=== PATIENT | female | born 1965 | race Caucasian/White ===

== ENCOUNTER → 2017-10-10 13:20 | Outpatient (CLI) | payer MEDICAID, SELFPAY ==
--- NOTE | 2017-10-10 13:28 | XR_ITS ---
XR hip RT 2-3V w/pelvis HISTORY: ITS.REASON: ACUTE RT KNEE AND HIP PAIN ORDERING PHYSICIAN: Anita Cardona PATIENT AGE: 51 years COMPARISON: None FINDINGS: No fracture or dislocation is evident. There is minor asymmetrical joint space narrowing of the right hip. There are no soft tissue calcifications. IMPRESSION: Minor osteoarthritic change right hip
--- NOTE | 2017-10-10 13:28 | XR_ITS ---
XR knee RT 3V HISTORY: ITS.REASON: ACUTE RT KNEE AND HIP PAIN ORDERING PHYSICIAN: Anita Cardona PATIENT AGE: 51 years COMPARISON: None FINDINGS: No fracture or dislocation. No lytic or blastic change. Normal mineralization. No significant arthritic changes evident. No other significant findings IMPRESSION: Negative Knee
== END ==
PROVIDERS: PCP Internal Medicine Adolescent Medicine; Visit Provider Nurse Practitioner Family
DX: M25.551 Pain in right hip (principal); M25.561 Pain in right knee
CPT/HCPCS: 73502; 73562

== ENCOUNTER → 2018-09-15 11:39 | Outpatient (CLI) | payer MEDICAID, SELFPAY ==
--- NOTE | 2018-09-15 11:52 | XR_ITS ---
XR hip RT 2-3V w/pelvis HISTORY: Posttraumatic pain ITS.REASON: RT HIP PAIN,FALL ORDERING PHYSICIAN: Ger Brandt MD PATIENT AGE: 52 years COMPARISON: None FINDINGS: No fracture or dislocation is evident. No significant degenerative change. No lytic or blastic change. Unremarkable soft tissues IMPRESSION: Negative hip
--- NOTE | 2018-09-15 11:52 | XR_ITS ---
XR forearm RT 2V HISTORY: Pain following injury ITS.REASON: FALL,RT FOREARM PAIN ORDERING PHYSICIAN: Ger Brandt MD PATIENT AGE: 52 years COMPARISON: None FINDINGS: No obvious fracture, dislocation, lytic change or blastic change. Normal mineralization. Unremarkable soft tissues IMPRESSION: Negative forearm
--- NOTE | 2018-09-15 11:52 | XR_ITS ---
EXAM: XR lumbar spine min 4V HISTORY: Pain following injury ITS.REASON: FALL ORDERING PHYSICIAN: Ger Brandt MD PATIENT AGE: 52 years COMPARISON: None FINDINGS: Normal alignment. No fracture or dislocation. No lytic or blastic change. Mild degenerative disc disease is present at L5-S1 IMPRESSION: Degenerative disc disease L5-S1 otherwise negative
--- NOTE | 2018-09-15 11:52 | XR_ITS ---
XR humerus RT CLINICAL INDICATION: ITS.REASON: FALL,PAIN ORDERING PHYSICIAN: Ger Brandt MD PATIENT AGE: 52 years Comparison: None FINDINGS: No fracture or dislocation IMPRESSION: Negative
--- NOTE | 2018-09-15 11:52 | XR_ITS ---
XR elbow RT min 3V HISTORY: ITS.REASON: RT ELBOW PAIN,FALL ORDERING PHYSICIAN: Ger Brandt MD PATIENT AGE: 52 years COMPARISON: None FINDINGS: BONY STRUCTURES: No fracture or dislocation. No lytic or blastic change. Normal mineralization. SOFT TISSUES: Unremarkable. No radio opaque foreign bodies. No displaced fat pad. JOINT SPACE: Well-preserved. No significant arthritic changes evident. IMPRESSION: Negative elbow.
== END ==
PROVIDERS: PCP Internal Medicine Adolescent Medicine; Visit Provider Internal Medicine Adolescent Medicine
DX: M25.551 Pain in right hip (principal); W19.XXXA Unspecified fall, initial encounter; M79.601 Pain in right arm; M54.5 Low back pain
CPT/HCPCS: 72110; 73060; 73080; 73090; 73502

== ENCOUNTER → 2019-06-14 10:01 | Outpatient (CLI) | payer OTHER, SELFPAY ==
--- NOTE | 2019-06-14 10:13 | XR_ITS ---
PROCEDURE: XR ANKLE WT BEARING RT MIN 3V CLINICAL INDICATION: right ankle pain COMPARISON: No exams were available for comparison FINDINGS: There are no previous exams available for comparison. There has been prior ORIF of the distal tibia and fibula with a posterior bone plate at the distal tibia with 2 long screws within the medial malleolar region and 4 screws within the distal shaft of the fibula with an old distal fibular healed fracture. Lucencies are present in the fibula from prior external fixation. Ankle mortise is well preserved. The talar dome has an unremarkable appearance. There is some cortical irregularity involving the posterior distal aspect of the tibia with suggestion of some mild osteoarthritic changes at this area. IMPRESSION: Postsurgical changes with mild degenerative changes of the posterior distal tibia Dictated by: Rg Eldridge MD 06/14/2019 11:28 Electronically signed by Rg Eldridge MD in [place] 06/14/2019 11:28
== END ==
PROVIDERS: PCP Internal Medicine Adolescent Medicine; Referring Provider Internal Medicine Adolescent Medicine; Visit Provider Orthopaedic Surgery
DX: M25.571 Pain in right ankle and joints of right foot (principal)
CPT/HCPCS: 73610

== ENCOUNTER 2019-06-27 09:48 | Outpatient (RCR) | payer OTHER, SELFPAY ==
--- NOTE | 2019-06-27 11:15 | HMH.PTOPEV ---
PT Outpatient Evaluation Rehab PT Outpatient Evaluation Start: 06/27/19 10:48 Freq: Status: Active Protocol: Document 06/27/19 10:49 FIORDALIZA (Rec: 06/27/19 11:15 FIORDALIZA [id number]) Electronically Signed By Umesh Mcintyre PT 06/27/19 10:49 Outpatient Therapy Subjective History Subjective History This is the initial Physical Therapy evaluation for Anca Rocha. Pt is a 53 y/o female referred to PT for c/o R ankle pain. Pt's order was for eval and treat w/ lace up corset ankle brace fit. Pt wishes to only have HEP and brace fit due to anxiety issues. Pt reports original injury to R ankle was in 2012. Pt reprots she was on ladder at work and fell off fracturing ankle in three places . Pt reports she had ORIF done at w/ later removal of some of the hardware. Pt reports to PT now w/ complaints of anterior, medial and lateral ankle pain . Chief Complaint Pain,Stiff Symptom Type Ache,Sharp,Stabbing Symptoms Relieved By Rest/Positioning,Ice,Brace/ Support Symptoms Aggravated By Standing,Physical Activity, Walking Prior Functional Limitations Housework,Standing,Squatting, Recreation Activity,Walking, Stairs Current Functional Limitations Housework,Standing,Squatting, Recreation Activity,Walking, Stairs Symptom Description Constant but Variable Level of pain today (0-10) 7 Pain scale - at its best (0-10) 6 Pain scale - at its worst (0-10) 10 Ankle/Foot Eval Gait Observation General Gait Pattern Observation Antalgic Gait Palpation Tenderness right Ankle/Foot Palpation Findings Tenderness Ankle/Foot Palpation Overall Comment TTP anterior T/C jt line medial to lateral ATF TTP positive Deltoid ligament TTP positive ROM left Ankle/Foot ROM Reason Not Measured Within Functional Limits right Ankle/Foot Dorsiflexion w/Knee Extended 10 from neutral Active Range Motion (degrees) Ankle/Foot Plantar Flexion Active Range 60 of Motion (degrees) Ankle/Foot Eversion Active Range
== END 2019-06-27 09:50 | disposition home or self-care (01) ==
LOC: PT 09:48
PROVIDERS: Visit Provider Orthopaedic Surgery
DX: M25.571 Pain in right ankle and joints of right foot (principal)
CPT/HCPCS: 97110; 97163; 97760

== ENCOUNTER → 2019-06-28 07:38 | Outpatient (CLI) | payer OTHER, SELFPAY ==
[2019-06-28 08:14] LABS: Basophils # 0.1 K/mm3 (0-0.2); Eosinophils # 0.2 K/mm3 (0.0-0.4); Eosinophils % 2.9 % (0.1-12.0); Hematocrit 44.1 % (37.0-47.0); Lymphocytes # 1.6 K/mm3 (0.7-4.5); Lymphocytes % 27.7 % (10-50); Mean Corpuscular HGB Conc 34.1 g/dL (31.8-35.4); Mean Corpuscular Hemoglobin 28.6 pg (27.0-31.2); Mean Corpuscular Volume 83.9 fl (81-99); Mean Platelet Volume 9.2 fl (7.4-10.4); Monocytes # 0.3 K/mm3 (0.1-1.0); Neutrophils # 3.6 K/mm3 (1.8-7.8); Neutrophils % 62.3 % (37.0-80.0); Platelet Count 136 K/mm3 (142-424); Red Blood Count 5.26 M/mm3 (4.20-5.40); Red Cell Distribution Width 13.5 % (11.5-17.5); White Blood Count 5.7 K/mm3 (4.8-10.8)
[2019-06-28 12:01] LABS: Chloride 102 mmol/L (98-107); Potassium 3.7 mmoL/L (3.5-5.1); Sodium 137 mmol/L (136-145)
[2019-06-28 12:03] LABS: Blood Urea Nitrogen 7 mg/dl (7-17); Estimated Glomerular Filt Rate 88 ml/min (>60); GFR (African American) 107 ML/MIN (>60)
[2019-06-28 12:04] LABS: Alanine Aminotransferase 28 U/L (12-78); Albumin/Globulin Ratio 1.3 (1.1-1.8); Alkaline Phosphatase 113 U/L (38-126); Anion Gap 8.7 mEq/L (5-15); Aspartate Amino Transferase 54 U/L (14-36); Bilirubin,Total 0.7 mg/dl (0.2-1.3); Calcium 9.8 mg/dl (8.4-10.2); Carbon Dioxide 30 mmol/L (22.0-30.0); Chol/HDL Ratio 4.7 (1-3.5); Cholesterol 199 mg/dl (140-200); Globulin 3.1 g/dL (1.3-3.2); Glucose 124 mg/dl (74-100); HDL Cholesterol 42 mg/dl (40-60); Total Protein,Serum 7.1 g/dl (6.3-8.2); Triglycerides 141 mg/dl (30-150); VLDL Cholesterol 28 mg/dL (0-40)
[2019-06-28 12:15] LABS: Direct LDL Cholesterol 136.75 mg/dL (100-129)
[2019-06-28 12:35] LABS: Thyroid Stimulating Hormone 1.38 uIU/mL (0.465-4.68)
[2019-06-28 14:42] LABS: Hemoglobin A1C 8.2 % (4.0-6.0)
== END ==
PROVIDERS: Visit Provider Nurse Practitioner Psychiatric/Mental Health
DX: Z00.00 Encounter for general adult medical examination without abnormal findings (principal); Z79.899 Other long term (current) drug therapy
CPT/HCPCS: 36415; 80053; 80061; 83036; 84443; 85025

== ENCOUNTER → 2019-08-03 13:06 | Outpatient (CLI) | payer OTHER, SELFPAY ==
--- NOTE | 2019-08-03 13:12 | XR_ITS ---
PROCEDURE: XR HIP RT 2-3V W/PELVIS CLINICAL INDICATION: hip pain Posttraumatic pain COMPARISON: HIPCMRT XR hip RT 2-3V w/pelvis from 10/10/2017 FINDINGS: There are mild osteoarthritic changes of the right hip. No acute fracture or dislocation evident. No lytic or blastic change. AP view of the pelvis also shows mild osteoarthritis of the left hip. IMPRESSION: Mild osteoarthritis of the hips Dictated by: Rg Eldridge MD 08/03/2019 13:35 Electronically signed by Rg Eldridge MD in [place] 08/03/2019 13:35
== END ==
PROVIDERS: PCP Internal Medicine Adolescent Medicine; Visit Provider Orthopaedic Surgery
DX: M25.551 Pain in right hip (principal)
CPT/HCPCS: 73502

== ENCOUNTER → 2019-08-10 10:28 | Outpatient (CLI) | payer OTHER, SELFPAY ==
--- NOTE | 2019-08-10 10:28 | XR_ITS ---
PROCEDURE: XR HIP LT 2-3V W/PELVIS CLINICAL INDICATION: Hip Pain COMPARISON: XR HIP RT 2-3V W/PELVIS from 08/03/2019 FINDINGS: There is minor asymmetrical joint space narrowing similar to the right hip. There is minor spurring of the acetabular roof. The left femoral head and neck appear intact. There are no soft tissue calcifications. The left SI joint appears normal. IMPRESSION: Minor osteoarthritic change left hip Dictated by: Dr. Joaquín Davila MD 08/10/2019 11:[address] Joaquín Davila MD in [place] 08/10/2019 11:18
--- NOTE | 2019-08-10 10:28 | XR_ITS ---
PROCEDURE: XR KNEE LT 4V CLINICAL INDICATION: Knee pain COMPARISON: [id number] XR knee RT 3V from 10/10/2017 FINDINGS: There is mild joint space narrowing medially. There is minor spurring of the tibial spines. There is slight narrowing of the patellofemoral space. There is no effusion and no loose body is seen. IMPRESSION: Minor degenerate changes of the knee as noted Dictated by: Dr. Joaquín Davila MD 08/10/2019 11:[address] Joaquín Davila MD in [place] 08/10/2019 11:21
--- NOTE | 2019-08-10 13:46 | US_ITS ---
PROCEDURE: US BREAST RT COMPLETE CLINICAL INDICATION: ABN MAMM Palpable area near axillary tail right breast COMPARISON: MM DIG MAMM DX UNILAT RT CAD from 08/10/2019 FINDINGS: There is rather diffuse homogeneous echogenicity consistent with this lady's breast parenchyma which is primarily fatty. There is no abnormal cystic or solid lesion identified and there are no findings of architectural distortion. There is a normal sized node in the axilla near the palpable area. IMPRESSION: Essentially negative ultrasound right breast Dictated by: Dr. Joaquín Davila MD 08/11/2019 12:[address] Joaquín Davila MD in [place] 08/11/2019 12:30
--- NOTE | 2019-08-10 13:46 | MM_ITS ---
PROCEDURE: MM DIG MAMM DX UNILAT RT CAD Digital Breast Tomosynthesis Included CLINICAL INDICATION: ABN MAMM The right breast lump, left breast tenderness there is a history of breast cancer patient's great maternal aunt, maternal cousin and maternal grandmother. COMPARISON: DMSB DIG MAMM-SCREEN SUSAN from 01/23/2013 [facility]MSB DIG MAMM-SCREEN SUSAN from 01/30/2014 DMSB DIG MAMM-SCREEN SUSAN from 01/29/2016 TECHNIQUE: Standard CC and MLO images and 3D Tomosynthesis was obtained. R2 CAD reviewed. FINDINGS: The breasts are composed primarily of fat with minimal scattered fibroglandular densities in each breast. There are couple of benign-appearing microcalcifications in each breast. In particular there is no abnormal density or architectural distortion near the axillary tail of the right breast. There is no suspicious lesion in either breast and no suspicious microcalcifications. The couple of normal appearing nodes in both axilla. IMPRESSION: Fatty type breast parenchyma with no suspicious lesions seen and negative ultrasound right breast at the site of the patient's complaint BI-RAD Category: 2 Benign Finding(s) FOLLOW-UP: 1YR 1 Year Follow-up (A letter has been sent to the patient regarding results of the study.) Dictated by: Dr. Joaquín Davila MD 08/11/2019 14:[address] Joaquín Davila MD in [place] 08/11/2019 14:01
== END ==
PROVIDERS: PCP Internal Medicine Adolescent Medicine; Visit Provider Nurse Practitioner Family
DX: M25.552 Pain in left hip (principal); M25.562 Pain in left knee; R92.8 Other abnormal and inconclusive findings on diagnostic imaging of breast
CPT/HCPCS: 73502; 73564; 76641; 77061; 77065; G0279

== ENCOUNTER 2019-08-20 13:25 | Emergency (ER) | payer OTHER, SELFPAY ==
[2019-08-20 13:26] VITALS: BP 131/71; PULSE 70; RESP 18; TEMP 36.5; O2SAT 98; BMI 29.4
[2019-08-20 14:10] LABS: UTC Influenza A Antigen Negative (Negative); UTC Influenza B Antigen Negative (Negative)
--- NOTE | 2019-08-20 14:20 | HMH.EDUTC ---
[facility] [place] Disposition Clinical Impression: Otitis media Qualifiers: Otitis media type: unspecified Laterality: right Qualified Code(s): H66.91 - Otitis media, unspecified, right ear Disposition: Home, Self-Care Condition on Discharge: Good (otitis med) Instructions: Middle Ear Infection, Middle Ear Infections (Alternative Therapy), DI for Sinusitis, Sinusitis Additional Instructions: *Monitor Temp, Over the counter Motrin or Tylenol as directed/as needed Tylenol every 4 hours and Motrin every 6 hours (as long as your family doctor has told you that you can take it) for fever or pain. and straight to ER if unable to lower temp less than 101.0 after medication given *Warm salt water gargles may help to soothe the throat *Throat Lozenges *Warm fluids *Sleep elevated *Humidifier/Vaporizer *Flonase 2 sprays in each nostril daily but be aware that it may take 2-3 days before you notice improvement Take medication as prescribed Return if needed Your throat swab was sent for culture. Those results are typically sent to your primary care. Be sure to follow up in 2-3 days with your family doctor/primary care physician if no improvement so they can review those result and treat if necessary. If you don?t have a primary care doctor, I recommend you get one but in the mean time, you will have to return to a walk in clinic Follow up IMMEDIATELY for new or worsening symptoms or no Noticeable improvement over the next 48-72 hours. 911 for difficulty breathing or swallowing Prescriptions: Amoxicillin [Amoxicillin 500mg Cap] 500 mg PO TID #30 cap Transmission Status: Pending to [id number] Fluticasone Propionate [Flonase 50mcg nasal spray 16gm] 1 - 2 spr NS DAILY #1 bottle Transmission Status: Pending to [facility] Benzonatate [Tessalon Perle 100mg Cap*] 100 mg PO TID PRN #15 cap PRN Reason: Cough Transmission Status: Pending to [facility] Referrals: Ger Brandt MD [Primary Care Provider] - Medical Decision Making - John Inquiry Pt receiving controlled substance: No John was queried for this patient: No Vital Signs: 08/20/19 13:26 Temperature 97.7 F Temperature Source Oral Pulse Rate [Right] 70 Respiratory Rate 18 Blood Pressure [Right Arm] 131/71 Blood Pressure Mean [Right Arm] 91 02 Sat by Pulse Oximetry 98 - Lab Data Lab results reviewed: Yes: I reviewed the patient's lab results. Lab Results 08/20/19 14:08: Influenza Type A Ag Negative, Influenza Type B Ag Negative Orders (Tests/Meds): ORDERS Category Date Time Status Flu A&B Antigens, Rapid [Rapid Influenza A&B Antigens] Lab 08/20/19 14:03 Stop Req Stat [facility] HPI - General Stated complaint: ear pain,sore throat,sinus headache,cough Time Seen by Provider: 08/20/19 14:20 Mode of Arrival: Ambulatory Limitations: No Limitations Description of Symptoms (Recalled from Triage Doc. by RN): C/O ear pain, nausea, and GARZA x2 days. HEENT Symptoms (Recalled from RN notes): Yes Resp Symptoms (Recalled from RN notes): Yes Skin Symptoms (Recalled from RN notes): No MS Symptoms (Recalled from RN notes): No Functional Status (Recalled from RN notes): na - History of Present Illness Provider Complaint: Patient state that she has been having pain in her right ear for over a week and has got worse over the last couple of days States that she has also been having some sinus problems and having sinus headache and has been taking over the counter pain medication for it and it has helped States that she was up most of the night with cough also - Related Data Home Medications Medication Instructions Recorded Confirmed alogliptin 25 mg tablet 25 mg PO DAILY 06/14/19 08/10/19 cyclobenzaprine 5 mg tablet 5 mg PO QHS 06/14/19 08/10/19 diclofenac sodium 75 mg 75 mg PO BID 06/14/19 08/10/19 tablet,delayed release lisinopril 10 1 tab PO DAILY 06/14/19 08/10/19 mg-hydrochlorothiazide 12.5 mg tablet nystatin
[2019-08-20 14:27] VITALS: BP 130/85; PULSE 87; RESP 20; TEMP 36.8; O2SAT 98
== END 2019-08-20 14:27 | disposition home or self-care (01) ==
PROVIDERS: Emergency Provider Nurse Practitioner; PCP Internal Medicine Adolescent Medicine
DX: H66.91 Otitis media, unspecified, right ear (principal); F41.8 Other specified anxiety disorders; I10 Essential (primary) hypertension; F17.210 Nicotine dependence, cigarettes, uncomplicated; Z79.899 Other long term (current) drug therapy
CPT/HCPCS: 87804; 99201

== ENCOUNTER → 2020-01-24 15:38 | Outpatient (CLI) | payer OTHER, SELFPAY | PROVIDERS: PCP Internal Medicine Adolescent Medicine; Visit Provider Nurse Practitioner Family | DX: Z03.818 Encounter for observation for suspected exposure to other biological agents ruled out (principal); R06.02 Shortness of breath | CPT/HCPCS: U0003 ==

== ENCOUNTER 2020-01-28 13:51 | Emergency (ER) | payer OTHER, SELFPAY ==
[2020-01-28 14:04] VITALS: BP 161/92; PULSE 70; RESP 20; TEMP 36.7; O2SAT 97; BMI 31.4
--- NOTE | 2020-01-28 14:13 | HMH.EDUTC ---
[facility] [place] Clinical Impression: Bronchitis Otitis media Qualifiers: Otitis media type: suppurative Chronicity: acute Laterality: bilateral Recurrence: non-recurrent Spontaneous tympanic membrane rupture: without spontaneous rupture Qualified Code(s): H66.003 - Acute suppurative otitis media without spontaneous rupture of ear drum, bilateral Disposition: Home, Self-Care Condition on Discharge: Good Instructions: DI for Acute Bronchitis, How to Quit Tobacco Products Additional Instructions: Drink plenty of fluids. Take tylenol for pain or fever. Start the antibiotics that I prescribed. Finish the steroids that you are already on. Follow up with your regular doctor. GO TO THE ER FOR ANY WORSENING SYMPTOMS The cough medication (promethazine dm) will make you drowsy, so don't drive or operate heavy machinery after taking it. Prescriptions: Promethazine/Dextromethorphan [Promethazine-Dm Syrup] 5 ml PO Q6HP PRN #240 syrup PRN Reason: Cough Transmission Status: Received by [facility] #[id number] Fluconazole [Diflucan 150mg tab] 150 mg PO ONCE #1 tab Transmission Status: Received by [facility] #[id number] Neomycin/Polymyxin B Sulf/Hc [Bawnqual-Iuiutbiai-OR Otic Susp 10mL] 3 drops EAR-RIGHT TID 7 Days #1 bottle Transmission Status: Received by [facility] #[id number] Cefdinir [Omnicef 300mg Capsule] 300 mg PO BID #20 cap Transmission Status: Received by [facility] #[id number] Referrals: Ger Brandt MD [Primary Care Provider] - Time of Disposition: 14:56 Medical Decision Making - Medical Records Medical records reviewed: No: I reviewed the patient's medical records. - John Inquiry Pt receiving controlled substance: No Vital Signs: 01/28/20 14:04 01/28/20 15:05 Temperature 98.1 F 98.1 F Temperature Source Oral Pulse Rate 70 Pulse Rate [Right Brachial] 70 Respiratory Rate 20 20 Blood Pressure 161/92 H Blood Pressure [Right Arm] 161/92 H Blood Pressure Mean [Right Arm] 115 Blood Pressure Source [Right Arm] Automatic Cuff Blood Pressure Position [Right Arm] Sitting 02 Sat by Pulse Oximetry 97 Oxygen Delivery Method Room Air Orders (Tests/Meds): ED MEDICATIONS Discontinued Medications Generic Name Dose Route Start Last Admin Trade Name Rosalee PRN Reason Stop Dose Admin Ceftriaxone Sodium 1 gm 01/28/20 14:41 01/28/20 14:51 Ceftriaxone 1gm Vial IM 01/28/20 14:42 1 gm ONCE ONE Administration Protocol Lidocaine HCl 0 ml 01/28/20 14:41 01/28/20 14:51 Lidocaine 1% 5ml Pf Vial IM 01/28/20 14:42 2.1 ml ONCE ONE Administration ORDERS Category Date Time Status Covid-19 Nasal PCR ([facility]) Routine Lab 01/28/20 14:50 Received [facility] [place]PI - General Stated complaint: cough, soa Time Seen by Provider: 01/28/20 14:13 Mode of Arrival: Ambulatory Source of Information: Patient Limitations: No Limitations Description of Symptoms (Recalled from Triage Doc. by RN): PATIENT C/O COUGH, HEADACHE, EAR PAIN, GREEN NASAL DRAINAGE, AND LOW-GRADE FEVER X APPROX 2 WEEKS. REPORTS SHE SAW HER PCP ON TUESDAY WHO GAVE HER A Z-PACK AND STEROIDS, HOWEVER SHE STATES SHE DOES NOT FEEL BETTER TODAY HEENT Symptoms (Recalled from RN notes): No Resp Symptoms (Recalled from RN notes): No Skin Symptoms (Recalled from RN notes): No MS Symptoms (Recalled from RN notes): No Functional Status (Recalled from RN notes): WNL - History of Present Illness Provider Complaint: She states that for the past 2 weeks she has had cough, chest congestion, and sinus congestion. She has just finished a z-pack with no improvement in her symptoms. She refuses a covid test today. - Related Data Home Medications Medication Instructions Recorded Confirmed alogliptin 25 mg tablet 25 mg PO DAILY 06/14/19 12/10/19 cyclobenzaprine 5 mg tablet 5 mg PO QHS 06/14/19 12/10/19 diclofenac sodium 75 mg 75 mg PO BID 06/14/19 12/10/19 tablet,delayed release lisinop
--- NOTE | 2020-01-28 14:17 | XR_ITS ---
PROCEDURE: XR CHEST 2V CLINICAL HISTORY: cough Cough and shortness of breath COMPARISON: No exams were available for comparison FINDINGS: The cardiomediastinal silhouette and pulmonary vascularity are within normal limits. The lungs are clear without infiltrates, suspicious nodules, or pleural effusions. No acute bony abnormalities. IMPRESSION: No acute findings. Dictated by: Rg Eldridge MD 01/28/2020 15:00 Rg Eldridge MD in [place] 01/28/2020 15:00
[2020-01-28 15:05] VITALS: BP 161/92; PULSE 70; RESP 20; TEMP 36.7; O2SAT 97
== END 2020-01-28 15:08 | disposition home or self-care (01) ==
PROVIDERS: Emergency Provider Nurse Practitioner Family; PCP Internal Medicine Adolescent Medicine
DX: Z20.828 Contact with and (suspected) exposure to other viral communicable diseases (principal); H66.003 Acute suppurative otitis media without spontaneous rupture of ear drum, bilateral; J20.9 Acute bronchitis, unspecified; E11.9 Type 2 diabetes mellitus without complications; F41.8 Other specified anxiety disorders; F17.210 Nicotine dependence, cigarettes, uncomplicated; Z79.899 Other long term (current) drug therapy
CPT/HCPCS: 71046; 96372; 99202; U0003

== ENCOUNTER → 2020-03-15 09:35 | Outpatient (CLI) | payer OTHER, SELFPAY ==
--- NOTE | 2020-03-15 09:38 | XR_ITS ---
PROCEDURE: XR HIP LT 2-3V W/PELVIS CLINICAL INDICATION: left hip pain Posttraumatic pain COMPARISON: CR XR HIP LT 2-3V W/PELVIS from 08/10/2019 FINDINGS: There are mild osteoarthritic changes involving both hips. No acute fracture or dislocation. No lytic or blastic change. IMPRESSION: Mild osteoarthritis, no acute. Dictated by: Rg Eldridge MD 03/15/2020 11:21 Rg Eldridge MD in [place] 03/15/2020 11:21
--- NOTE | 2020-03-15 09:53 | XR_ITS ---
PROCEDURE: XR KNEE LT 4V CLINICAL INDICATION: Left knee pain COMPARISON: CR [id number] XR knee RT 3V from 10/10/2017 CR XR KNEE LT 4V from 08/10/2019 FINDINGS: No fracture or dislocation. No lytic or blastic change. There is normal mineralization. Mild tricompartmental osteoarthritic changes are present greatest at the medial compartment and overall not significantly changed from 08/10/2019 Other findings:None. IMPRESSION: Mild osteoarthritis Dictated by: Rg Eldridge MD 03/15/2020 11:20 Rg Eldridge MD in [place] 03/15/2020 11:20
== END ==
PROVIDERS: PCP Internal Medicine Adolescent Medicine; Visit Provider Orthopaedic Surgery
DX: M25.552 Pain in left hip (principal); M25.562 Pain in left knee
CPT/HCPCS: 73502; 73564

== ENCOUNTER → 2020-03-17 14:04 | Outpatient (CLI) | payer OTHER, SELFPAY ==
--- NOTE | 2020-03-17 14:09 | CT_ITS ---
PROCEDURE: CT ANKLE RT WO CON CLINICAL HISTORY: Rt ankle pain r ankle pain hx of surg. 2013 COMPARISON: CR XR ANKLE WT BEARING RT MIN 3V from 06/14/2019 TECHNIQUE: Axial images obtained with sagittal and coronal reformats. All CT scans at the facility use one or more dose reduction, viz: automated exposure control, ma/kV adjustment per patient size (including targeted exams where dose is matched to indication, i.e. head), or iterative reconstruction technique. FINDINGS: There is a posterior bone plate at the distal tibia with multiple cortical screws. There are 2 oblique screws through the medial malleolar region. There is an old distal fibular shaft fracture with for cortical screws at the fracture site. The ankle mortise is preserved. Talar dome has an unremarkable appearance as does the tibial plafond and the Achilles tendon appears unremarkable. The talus and calcaneus appear unremarkable. No abnormal fluid collections are evident. There are several lucencies through the distal fibula from previous cortical screw placement. A small linear density is present in the tissues just posterior to the shaft of the fibula distally and could represent a bone shard. IMPRESSION: No acute finding. Postsurgical changes are present as described above. Dictated by: Rg Eldridge MD 03/19/2020 14:28 Rg Eldridge MD in [place] 03/19/2020 14:28
== END ==
PROVIDERS: PCP Nurse Practitioner Family; Visit Provider Orthopaedic Surgery
DX: M25.571 Pain in right ankle and joints of right foot (principal)
CPT/HCPCS: 73700

== ENCOUNTER → 2020-03-26 15:12 | Outpatient (CLI) | payer OTHER, SELFPAY ==
--- NOTE | 2020-03-26 15:16 | XR_ITS ---
PROCEDURE: XR KNEE LT 4V CLINICAL INDICATION: fall on 03/22/20 COMPARISON: No exams were available for comparison FINDINGS: No fracture or dislocation. No lytic or blastic change. There is normal mineralization. There is moderate joint space narrowing medially minor spurring of the tibial spines.. No erosive changes evident. There is no effusion. Other findings:None. IMPRESSION: Minor degenerate change, no acute fracture seen Dictated by: Dr. Joaquín Davila MD 03/26/2020 15:50 Dr. Joaquín Davila MD in [place] 03/26/2020 15:50
--- NOTE | 2020-03-26 15:16 | XR_ITS ---
PROCEDURE: XR ELBOW LT MIN 3V CLINICAL INDICATION: fall on 03/22/20 COMPARISON: No exams were available for comparison FINDINGS: No fracture or dislocation. No lytic or blastic change. There is normal mineralization. The joint spaces are well-preserved. No significant degenerative/arthritic changes. No erosive changes evident. Other findings:None. IMPRESSION: No acute findings. Dictated by: Dr. Joaquín Davila MD 03/26/2020 15:48 Dr. Joaquín Davila MD in [place] 03/26/2020 15:48
--- NOTE | 2020-03-26 15:16 | XR_ITS ---
PROCEDURE: XR KNEE RT 4V CLINICAL INDICATION: fall on 03/22/20 COMPARISON: No exams were available for comparison FINDINGS: No fracture or dislocation. No lytic or blastic change. There is normal mineralization. There is minor joint space narrowing medially and minor spurring of the tibial spines.. No erosive changes evident. There is no effusion. Other findings:None. IMPRESSION: Minor degenerative changes, no fracture seen Dictated by: Dr. Joaquín Davila MD 03/26/2020 15:49 Dr. Joaquín Davila MD in [place] 03/26/2020 15:49
--- NOTE | 2020-03-26 15:16 | XR_ITS ---
PROCEDURE: XR ELBOW RT MIN 3V CLINICAL INDICATION: fall on 03/22/20 COMPARISON: No exams were available for comparison FINDINGS: No fracture or dislocation. No lytic or blastic change. There is normal mineralization. The joint spaces are well-preserved. There is minor spurring of the coronoid process of the olecranon fossa.. No erosive changes evident. Other findings:No abnormal fat pad sign IMPRESSION: No acute findings. Dictated by: Dr. Joaquín Davila MD 03/26/2020 15:45 Dr. Joaquín Davila MD in [place] 03/26/2020 15:45
== END ==
PROVIDERS: PCP Nurse Practitioner Family; Visit Provider Orthopaedic Surgery
DX: M25.562 Pain in left knee (principal); M25.561 Pain in right knee; M25.522 Pain in left elbow; W19.XXXA Unspecified fall, initial encounter
CPT/HCPCS: 73080; 73564

== ENCOUNTER → 2020-04-03 08:32 | Outpatient (CLI) | payer OTHER, SELFPAY ==
[2020-04-03 10:40] LABS: Coronavirus 19 IgG Antibody Negative (Negative); Coronavirus 19 IgM Antibody Negative (Negative)
== END ==
PROVIDERS: Visit Provider Internal Medicine Gastroenterology
DX: Z01.818 Encounter for other preprocedural examination (principal); Z03.818 Encounter for observation for suspected exposure to other biological agents ruled out; Z12.11 Encounter for screening for malignant neoplasm of colon
CPT/HCPCS: 36415; 86328

== ENCOUNTER 2020-04-04 07:22 | Day surgery (SDC) | payer OTHER, SELFPAY ==
[2020-03-24 13:32] VITALS: BMI 28.1
[2020-04-04] VITALS (7 sets, daily range): BP systolic 81–122; BP diastolic 49–75; PULSE 53–65; RESP 18; TEMP 36.1–36.2; O2SAT 96–99
--- NOTE | 2020-04-04 09:04 | HMH.ANESCL ---
[facility] Anesthesia Checklist - Structural Data Admitted From: Home Planned Operative Procedure/s: colonoscopy Consent for Planned Operative Procedure(s) Verified: Yes - Airway Assessment C-Spine Mobility Assessed: Yes TMJ Mobility Assessed: Yes Dentition: Poor Dentition - Neurological Assessment Level of Consciousness: Awake, Alert, Appropriate - Anesthesia Plan Anesthesia Risk discussed: Yes Anesthesia Plan: Verified ASA Class: II Anesthesia Type: MAC [facility] History I have reviewed the patient's past medical history: Yes Medical History: Reports:: Anxiety, Depression, Diabetes Mellitus Type 2, Hypertension Denies:: Cancer, Diabetes Mellitus Type 1, Internal Pacemaker, MRSA, Seizures *Have you ever received a pneumonia vaccine?: No *Have you received a flu vaccine this season?: Yes Other Medical History: Reports: Arthritis Anesthesia experience/problems:: none Laterality Cases: Left: Arthroscopy Knee, Right: Other Other Surgeries: Yes: Cholecystectomy, Hysterectomy-Total, Tubal Ligation. No: Pacemaker Amputation: No Fractures: No - *Social History Last grade of school completed: GED Smoking Status: Current every day smoker Tobacco Type: cigarettes # Packs/Day (cigarettes): 1 Alcohol Intake: current Alcohol Intake Frequency:: holidays/special occasions only Substance Use Type: marijuana *Occupational Status:: disabled Housing: house Household Members: spouse *Travel in the last 8 weeks: None - Psychiatric History Pschychiatric History:: Reports:: Anxiety, Depression Family Hx:: Anemia, Asthma, Cancer, Diabetes, Heart Attack, Hyperlipidemia, Hypertension, Kidney Disease, Stroke, Thyroid Disorder, Substance abuse, Alcoholism, Mental illness
--- NOTE | 2020-04-04 09:13 | HMH.PROC ---
[facility] Procedure Note Procedure Note:: Colonoscopy Procedure Report: Colonoscopy with cold biopsies Endoscopist: Dutch Gotti II, MD Referring physician: DOLLY Bowen Date of Procedure: April 04, 2020 Equipment: Olympus 180 variable stiffness pediatric colonoscope Sedation: MAC sedation Indication: Mrs. Rocha is a 54-year-old female who is here for screening colonoscopy. She does state that she had a colonoscopy 30 years ago. The patient does get some chronic lower abdominal discomfort, bloating and intermittent constipation. Her maternal grandfather had colon cancer. She reports occasional hemorrhoidal bleeding every couple of months. She reports no change in her bowel habits or weight loss. Procedure: Prior to the procedure, a history and physical exam was performed, and patient's medications and allergies were reviewed. The risks, benefits and alternatives of the sedation and procedure were discussed with the patient. All questions were answered and informed consent was obtained. The patient was brought to the procedure room. Patient identification and proposed procedure were verified by the physician and the nurse. The patient was placed in a left lateral decubitus position and the scope was passed under direct vision. Throughout the procedure, the patient's blood pressure, pulse, and oxygen saturations were monitored continuously. The colonoscopy was accomplished without difficulty. The patient tolerated the procedure well. Findings: On digital rectal examination there was normal rectal tone. There were no external hemorrhoids. The colonoscope was introduced through the anal canal to the rectum and advanced to the cecum. The ileocecal valve and appendiceal orifice were identified. The scope was advanced a short distance into the ileum which appeared grossly normal. The scope was then withdrawn into the colon. There was an ulceration in the cecum that appeared to be NSAID colopathy and cold biopsies were obtained. The remaining cecum, ascending, transverse, descending, sigmoid and rectum were grossly normal. There were no mucosal abnormalities identified. Additionally, there were large pools of brown liquid stool impairing visualization and could not be suctioned because of a large amount of residue. Upon retroflexion within the rectum there were grade 2 internal hemorrhoids.The preparation was fair to poor throughout with [place] Preparation Score of 5 out of 9. The cecal time was 12 minutes. Impression: 1. Cecal ulceration?rule out NSAID colopathy 2. Poor bowel preparation 3. Grade 2 internal hemorrhoids Plan: I will discuss the findings with the patient and family. Screening/surveillance is debatable in terms of repeating colonoscopy now or I would recommend repeating surveillance again in 5 years rather than 10 years. We will discuss treatment of her IBS constipation and abdominal discomfort. I will follow-up the biopsies.
[2020-04-04 10:18] LABS: POC Glucose,Bedside 107 (70-110)
== END 2020-04-04 10:00 | disposition home or self-care (01) ==
LOC: OUTP 07:23
PROVIDERS: PCP Internal Medicine Adolescent Medicine; Visit Provider Internal Medicine Gastroenterology
PROC: 0DJD8ZZ Inspection of Lower Intestinal Tract, Via Natural or Artificial Opening Endoscopic (ICD-10-PCS; CPT 45378; principal; 2020-04-04 08:30)
DX: Z12.11 Encounter for screening for malignant neoplasm of colon (principal); K63.3 Ulcer of intestine; K64.1 Second degree hemorrhoids; E11.9 Type 2 diabetes mellitus without complications; I10 Essential (primary) hypertension; F41.9 Anxiety disorder, unspecified; F32.9 Major depressive disorder, single episode, unspecified; M19.90 Unspecified osteoarthritis, unspecified site; Z72.0 Tobacco use; Z80.9 Family history of malignant neoplasm, unspecified; Z82.3 Family history of stroke; Z82.49 Family history of ischemic heart disease and other diseases of the circulatory system
CPT/HCPCS: 45380; 82962

== ENCOUNTER → 2020-05-17 12:00 | Outpatient (CLI) | payer OTHER, SELFPAY ==
[2020-05-17 13:22] LABS: Coronavirus 19 IgG Antibody Negative (Negative); Coronavirus 19 IgM Antibody Negative (Negative)
== END ==
PROVIDERS: Visit Provider Internal Medicine Gastroenterology
DX: Z01.818 Encounter for other preprocedural examination (principal); Z20.822 Contact with and (suspected) exposure to COVID-19; Z12.11 Encounter for screening for malignant neoplasm of colon
CPT/HCPCS: 36415; 86328

== ENCOUNTER → 2021-01-30 07:01 | Outpatient (CLI) | payer OTHER, SELFPAY ==
[2021-01-30 08:13] LABS: Basophils # 0.1 K/mm3 (0-0.2); Basophils % 0.7 % (0.1-2.0); Eosinophils # 0.1 K/mm3 (0.0-0.4); Eosinophils % 1.2 % (0.1-12.0); Hematocrit 46.2 % (37.0-47.0); Hemoglobin 15.9 g/dL (12.2-16.2); Lymphocytes % 23.7 % (10-50); Mean Corpuscular HGB Conc 34.4 g/dL (31.8-35.4); Mean Corpuscular Hemoglobin 29.9 pg (27.0-31.2); Mean Corpuscular Volume 86.9 fl (81-99); Mean Platelet Volume 8.9 fl (7.4-10.4); Monocytes # 0.5 K/mm3 (0.1-1.0); Monocytes % 6.5 % (1.7-9.3); Neutrophils # 5.7 K/mm3 (1.8-7.8); Platelet Count 107 K/mm3 (142-424); Red Blood Count 5.31 M/mm3 (4.20-5.40); Red Cell Distribution Width 14.8 % (11.5-17.5); White Blood Count 8.4 K/mm3 (4.8-10.8)
[2021-01-30 08:28] LABS: Hemoglobin A1C 6.9 % (4.0-6.0)
[2021-01-30 08:39] LABS: Alanine Aminotransferase 32 U/L (12-78); Albumin Level 4.2 g/dl (3.5-5.0); Albumin/Globulin Ratio 1.3 (1.1-1.8); Alkaline Phosphatase 133 U/L (38-126); Aspartate Amino Transferase 52 U/L (14-36); Blood Urea Nitrogen 9 mg/dl (7-17); Calcium 9.2 mg/dl (8.4-10.2); Carbon Dioxide 31 mmol/L (22.0-30.0); Chloride 103 mmol/L (98-107); Chol/HDL Ratio 2.6 (1-3.5); Cholesterol 154 mg/dl (140-200); Estimated Glomerular Filt Rate 88 ml/min (>60); GFR (African American) 106 ML/MIN (>60); Globulin 3.2 g/dL (1.3-3.2); Glucose 148 mg/dl (74-100); HDL Cholesterol 59 mg/dl (40-60); Sodium 141 mmol/L (136-145); Total Protein,Serum 7.4 g/dl (6.3-8.2); Triglycerides 93 mg/dl (30-150); VLDL Cholesterol 19 mg/dL (0-40)
[2021-01-30 08:49] LABS: Direct LDL Cholesterol 75.29 mg/dL (100-129)
[2021-01-30 09:28] LABS: Vitamin B12 614 pg/mL (239-931)
== END ==
PROVIDERS: Visit Provider Nurse Practitioner Family
DX: E11.65 Type 2 diabetes mellitus with hyperglycemia (principal); E53.8 Deficiency of other specified B group vitamins; E55.9 Vitamin D deficiency, unspecified; Z79.84 Long term (current) use of oral hypoglycemic drugs
CPT/HCPCS: 36415; 80053; 80061; 82306; 82607; 83036; 85025

== ENCOUNTER → 2021-02-20 08:25 | Outpatient (CLI) | payer OTHER, SELFPAY ==
[2021-02-20] VITALS (8 sets, daily range): BP systolic 134–156; BP diastolic 80–89; PULSE 65–72; RESP 18–20; TEMP 36.5; O2SAT 95–99
== END | disposition home or self-care (01) ==
PROVIDERS: PCP Internal Medicine Adolescent Medicine; Visit Provider Internal Medicine Adolescent Medicine
DX: U07.1 COVID-19 (principal); Z23 Encounter for immunization
CPT/HCPCS: 96365

== ENCOUNTER → 2021-12-18 15:34 | Outpatient (CLI) | payer OTHER, SELFPAY ==
--- NOTE | 2021-12-18 15:50 | MM_ITS ---
PROCEDURE INFORMATION: Exam: MG Bilateral Screening 3D Mammography Exam date and time: 12/18/2021 3:55 PM Age: 56 years old Clinical indication: Screening mammogram TECHNIQUE: Imaging protocol: Bilateral Screening tomosynthesis and 2D mammography including computer-aided detection (CAD) when performed. COMPARISON: 1. MG MM DIG MAMM DX UNILAT RT CAD 08/10/2019 1:53 PM 2. MG DMSB DIG MAMM-SCREEN SUSAN 01/29/2016 10:30 AM 3. MG DMSB DIG MAMM-SCREEN SUSAN 01/30/2014 10:23 AM 4. MG DMSB DIG MAMM-SCREEN SUSAN 01/23/2013 10:29 AM FINDINGS: MAMMOGRAPHY: Breast composition: There are scattered areas of fibroglandular density. Mass: None. Architectural distortion: No new or suspicious architectural distortion. Calcifications: No new or suspicious calcifications are present Asymmetric density: No new or suspicious asymmetric density is present Skin thickening: None. Axillary adenopathy: None. IMPRESSION: No mammographic evidence of malignancy. Recommend annual screening mammography unless otherwise clinically indicated. ASSESSMENT: BI-RADS category 1: Negative
== END ==
PROVIDERS: PCP Internal Medicine Adolescent Medicine; Visit Provider Nurse Practitioner Family
DX: Z12.31 Encounter for screening mammogram for malignant neoplasm of breast (principal)
CPT/HCPCS: 77063; 77067

== ENCOUNTER 2022-06-18 13:24 | Emergency (ER) | payer OTHER, SELFPAY ==
[2022-06-18 13:25] VITALS: BP 128/71; PULSE 78; RESP 18; TEMP 36.7; O2SAT 97; BMI 26.6
--- NOTE | 2022-06-18 14:04 | HMH.EDGENADL ---
Discharge Plan Disposition Patient Disposition: Home, Self-Care Prescriptions Prescriptions: No Action lisinopril-hydrochlorothiazide 10-12.5 mg tablet 2 tab PO DAILY alogliptin 25 mg tablet 25 mg PO DAILY diclofenac sodium 75 mg tablet,delayed release (DR/EC) 75 mg PO BID cyclobenzaprine 5 mg tablet 5 mg PO QHS omega-3 fatty acids [Fish Oil Concentrate] 1,000 mg capsule 1,000 mg PO BID Lybalvi 5-10 mg tablet 1 tab PO QHS Qty: 30 1RF diclofenac sodium [Voltaren] 1 % gel 2 g TOPICAL QID Qty: 100 1RF Rx Instructions: apply to ankle as needed, up to 3 times daily cyanocobalamin (vitamin B-12) 1,000 MCG/ML solution 1,000 mcg IM WEEKLY hydrochlorothiazide 25 MG tablet 25 mg PO DAILY citrate dextrose solution 500 ML solution 500 ml MC DAILY fluticasone propionate 120 SPR/BOT bottle 1 - 2 spr NS DAILY Rx Instructions: each nostril daily ubrogepant 100 MG tablet 100 mg PO NEEDED PRN (Reason: migraines) Referrals Follow up/Referrals: Ger Brandt MD [Primary Care Provider] - See instructions Activity Restrictions/Add. Instructions Additional Instructions/Restrictions: Your work-up from an emergency standpoint regarding abdominal pain was unremarkable. No evidence of any emergent medical condition. 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 Clinical Impressions Clinical Impression: Nonspecific abdominal pain Instructions Patient Instructions: DI for Acute Abdominal Pain Discharge ED Provider: Roland Galindo General Adult HPI General Chief complaint: Abdominal Pain Stated complaint: Possible fluid on liver Time Seen by Provider: 06/18/22 14:04 Mode of Arrival: Ambulatory Source of Information: Patient Limitations: No Limitations Description of Symptoms (Recalled from ER Triage Doc. by RN): c/o black, tarry stool with lower abdomen pain since Tuesday night. Pt states that she has cirrhosis of the liver and feels like she has fluid built up in her hand/legs and feet. History of Present Illness HPI narrative: Patient is a 56-year-old female with a known history of cirrhosis that she claims is hereditary and she is followed by GI in [place] for this. States that she thinks that she has ascites that is accumulated on her abdomen before she states that she has a known history of decompensated cirrhosis and has had to have a paracentesis for this in the past. She states that she has increasing abdominal pain over the last 2 weeks with decreased bowel movements associate with nausea. No significant vomiting she tried some stool softeners and suppositories at home and it few days ago on Tuesday she had 1 small caliber dark tarry stool but since that time has had brown stools most recently yesterday has had no bowel movements today. But has not had melena in over 48 hours. No hematemesis. She states she feels like she is 9 months and that she is significantly distended. Additionally she took some magnesium citrate which she states makes her feel bloated. No fevers or chills no other systemic signs or symptoms of illness. Related Data Home Medications Medication Instructions Recorded Confirmed alogliptin 25 mg tablet 25 mg PO DAILY Diabetes 06/14/19 06/10/22 cyclobenzaprine 5 mg tablet 5 mg PO QHS muscle relaxer 06/14/19 06/10/22 diclofenac sodium 75 mg 75 mg PO BID Pain 06/14/19 06/10/22 tablet,delayed release lisinopril 10 2 tab PO DAILY blood pressure 06/14/19 06/10/22 mg-hydrochlorothiazide 12.5 mg tablet omega-3 fatty acids 1,000 mg 1,000 mg PO BID Supplement 06/14/19 06/10/22 capsule (Fis
--- NOTE | 2022-06-18 14:11 | CT_ITS ---
FINAL REPORT TECHNIQUE: Postcontrast axial images through the abdomen and pelvis were performed. This study was performed with techniques to keep radiation doses as low as reasonably achievable, (ALARA). Individualized dose reduction techniques using automated exposure control or adjustment of mA and/or kV according to the patient's size were employed. CLINICAL HISTORY: diffuse abd pain FINDINGS: Abdomen: The lung bases are clear. There is moderate diffuse fatty infiltration of the liver. The gallbladder is absent. There is a benign-appearing cyst in the inferior spleen measuring 9 mm. The spleen is enlarged measuring 15.5 cm. The adrenals are normal. The pancreas is unremarkable. The kidneys enhance appropriately. The aorta is normal in caliber. No free fluid or adenopathy is identified. No findings for mechanical bowel obstruction are identified. Pelvis: The appendix is unremarkable. There is mild nonspecific stranding in the retroperitoneum and right pericolic gutter. No definite fluid collection is identified. The uterus is not present, presumably surgically absent. There are calcified phleboliths in the floor of the pelvis. The urinary bladder is unremarkable. No free fluid, free air, abscess or adenopathy is identified. IMPRESSION: Moderate splenomegaly. Nonspecific stranding in the retroperitoneum and right paracolic gutter of uncertain significance. Reviewed, Interpreted and Dictated by Abdulaziz Portillo MD Transcribed by Davina Arias Authenticated and [facility]
[2022-06-18 14:18] LABS: Basophils # 0.1 K/mm3 (0-0.2); Basophils % 1.1 % (0.1-2.0); Eosinophils # 0.3 K/mm3 (0.0-0.4); Eosinophils % 3.2 % (0.1-12.0); Hematocrit 39.1 % (37.0-47.0); Hemoglobin 13.4 g/dL (12.2-16.2); Lymphocytes # 1.8 K/mm3 (0.7-4.5); Lymphocytes % 19.5 % (10-50); Mean Corpuscular HGB Conc 34.3 g/dL (31.8-35.4); Mean Corpuscular Hemoglobin 29.3 pg (27.0-31.2); Mean Corpuscular Volume 85.5 fl (81-99); Mean Platelet Volume 9.2 fl (7.4-10.4); Monocytes # 0.7 K/mm3 (0.1-1.0); Monocytes % 7.4 % (1.7-9.3); Neutrophils # 6.3 K/mm3 (1.8-7.8); Neutrophils % 68.9 % (37.0-80.0); Platelet Count 121 K/mm3 (142-424); Red Blood Count 4.57 M/mm3 (4.20-5.40); Red Cell Distribution Width 14.6 % (11.5-17.5); White Blood Count 9.1 K/mm3 (4.8-10.8)
[2022-06-18 14:28] LABS: Alanine Aminotransferase 19 U/L (12-78); Albumin Level 3.7 g/dl (3.5-5.0); Albumin/Globulin Ratio 1.1 (1.1-1.8); Alkaline Phosphatase 123 U/L (38-126); Anion Gap 7.8 mEq/L (5-15); Aspartate Amino Transferase 36 U/L (14-36); Bilirubin,Total 0.9 mg/dl (0.2-1.3); Blood Urea Nitrogen 6 mg/dl (7-17); Calcium 8.4 mg/dl (8.4-10.2); Carbon Dioxide 29 mmol/L (22.0-30.0); Chloride 105 mmol/L (98-107); Creatinine Clearance Estimated 98 mL/min (50-200); Estimated Glomerular Filt Rate 75 ml/min (>60); GFR (African American) 90 ML/MIN (>60); Globulin 3.4 g/dL (1.3-3.2); Glucose 124 mg/dl (74-100); Lipase 307 U/L (23-300); Potassium 3.8 mmoL/L (3.5-5.1); Sodium 138 mmol/L (136-145); Total Protein,Serum 7.1 g/dl (6.3-8.2)
[2022-06-18 14:31] VITALS: BP 112/56; PULSE 61; RESP 20; O2SAT 97
[2022-06-18 14:44] LABS: Microscopic, Urine URINE MICROSCOPIC (MICROSCOPIC)
[2022-06-18 14:51] LABS: Appearance,Urine CLEAR (Clear); Bilirubin,Urine Negative (Negative); Blood, Urine Negative (Negative); Color,Urine YELLOW (Yellow); Glucose,Urine (UA) Negative (Negative); Ketones,Urine Negative (Negative); Leukocyte Esterase,Urine Negative (Negative); Nitrate,Urine Negative (Negative); Protein,Urine Negative (Negative); Specific Gravity, Urine <= 1.005 (1.005-1.030)
[2022-06-18 15:29] LABS: Squamous Epithelial Cell,Urine Occasional #/hpf (0-5)
--- NOTE | 2022-06-18 15:32 | PC.NURSE ---
pt ambulatory to restroom without complications.
[2022-06-18 16:13] VITALS: BP 124/55; PULSE 60; RESP 18; TEMP 36.7; O2SAT 99
== END 2022-06-18 16:15 | disposition home or self-care (01) ==
PROVIDERS: Emergency Provider Student in an Organized Health Care Education/Training Program; PCP Internal Medicine Adolescent Medicine
DX: R10.9 Unspecified abdominal pain (principal)
CPT/HCPCS: 74177; 80053; 81001; 83690; 85025; 96361; 96374; 96375; 99285; J2405; Q9967

== ENCOUNTER → 2022-09-21 07:38 | Outpatient (CLI) | payer OTHER, SELFPAY ==
--- NOTE | 2022-09-21 07:42 | US_ITS ---
FINAL REPORT CLINICAL HISTORY: CIRRHOSIS COMPARISON: None FINDINGS: Sonographic images of the right upper quadrant were obtained. The pancreas is partially obscured. The liver is heterogeneous in appearance compatible with the clinical history of cirrhosis. The portal vein is at the upper limits of normal in size measuring 13 mm. No focal mass is identified. The gallbladder has been surgically resected. There is no evidence of biliary ductal dilatation.The common duct measures 3 mm. Limited images of the right kidney reveal an 11 mm cyst in the upper pole. IMPRESSION: Heterogeneous liver echotexture compatible with the clinical history of cirrhosis. The portal vein is at the upper limits of normal in size measuring 13 mm. Status post cholecystectomy. 11 mm cyst upper pole right kidney. Reviewed, Interpreted and Dictated by Andre Alas III, MD Transcribed by Ambar Albright Authenticated and . [facility]
== END ==
PROVIDERS: PCP Internal Medicine Adolescent Medicine; Visit Provider Physician Assistant
DX: K74.60 Unspecified cirrhosis of liver (principal)
CPT/HCPCS: 76705

== ENCOUNTER → 2023-02-28 10:51 | Outpatient (CLI) | payer OTHER, SELFPAY ==
--- NOTE | 2023-02-28 10:56 | MM_ITS ---
PROCEDURE INFORMATION: Exam: MG Bilateral Screening 3D Mammography Exam date and time: 02/28/2023 10:44 AM Age: 57 years old Clinical indication: Screening examination TECHNIQUE: Imaging protocol: Bilateral Screening tomosynthesis and 2D mammography including computer-aided detection (CAD) when performed. COMPARISON: 1. MG MM DIG SCREENING MAMM BI W/CAD 12/18/2021 3:55 PM 2. MG MM DIG MAMM DX UNILAT RT CAD 08/10/2019 1:53 PM FINDINGS: MAMMOGRAPHY: Breast composition: There are scattered areas of fibroglandular density. Mass: None. Architectural distortion: None. Calcifications: No suspicious calcifications. Asymmetric density: None. Skin thickening: None. Axillary adenopathy: None. IMPRESSION: No mammographic evidence of malignancy. Annual screening is recommended unless otherwise clinically indicated. ASSESSMENT: BI-RADS Category 1: Negative
== END ==
PROVIDERS: PCP Internal Medicine Adolescent Medicine; Visit Provider Internal Medicine Adolescent Medicine
DX: Z12.31 Encounter for screening mammogram for malignant neoplasm of breast (principal)
CPT/HCPCS: 77063; 77067

== ENCOUNTER 2023-10-09 17:42 | Emergency (ER) | payer OTHER, SELFPAY ==
[2023-10-09 17:53] VITALS: BP 118/73; PULSE 98; RESP 18; TEMP 36.9; O2SAT 98; BMI 28.5
--- NOTE | 2023-10-09 17:53 | XR_ITS ---
PROCEDURE INFORMATION: Exam: XR Right Foot Exam date and time: 10/09/2023 5:50 PM Age: 57 years old Clinical indication: Injury or trauma; Fall; Blunt trauma; Foot; Right TECHNIQUE: Imaging protocol: Radiologic exam of the right foot. Views: 3 or more views. COMPARISON: CR Ankle R 10/09/2023 5:48 PM FINDINGS: Bones/joints: Osteopenia. ORIF hardware in the distal tibia and fibula again visualized. Soft tissues: Normal. IMPRESSION: No evidence of acute osseous injury.
--- NOTE | 2023-10-09 17:53 | XR_ITS ---
PROCEDURE INFORMATION: Exam: XR Right Ankle Exam date and time: 10/09/2023 5:48 PM Age: 57 years old Clinical indication: Injury or trauma; Fall; Blunt trauma; Ankle; Right; Prior surgery; Surgery date: 6+ months; Surgery type: Orif TECHNIQUE: Imaging protocol: Radiologic exam of the right ankle. Views: 3 or more views. COMPARISON: 06/14/2019 FINDINGS: Bones/joints: Status post ORIF distal tibia and fibula. Hardware appears intact. Soft tissues: Normal. IMPRESSION: Intact ORIF. No evidence of acute injury or hardware failure.
--- NOTE | 2023-10-09 18:07 | EXP.UTC ---
Discharge Plan Disposition Patient Disposition: Home, Self-Care Condition: Good Prescriptions Prescriptions: No Action lisinopril-hydrochlorothiazide 10-12.5 mg tablet 2 tab PO DAILY alogliptin 25 mg tablet 25 mg PO DAILY diclofenac sodium 75 mg tablet,delayed release (DR/EC) 75 mg PO BID cyclobenzaprine 5 mg tablet 5 mg PO QHS omega-3 fatty acids [Fish Oil Concentrate] 1,000 mg capsule 1,000 mg PO BID diclofenac sodium [Voltaren] 1 % gel 2 g TOPICAL QID Qty: 100 1RF Rx Instructions: apply to ankle as needed, up to 3 times daily Lybalvi 15-10 mg tablet 1 tab PO QHS Qty: 30 2RF buspirone 10 mg tablet 10 mg PO TID Qty: 90 1RF cyanocobalamin (vitamin B-12) 1,000 MCG/ML solution 1,000 mcg IM WEEKLY hydrochlorothiazide 25 MG tablet 25 mg PO DAILY citrate dextrose solution 500 ML solution 500 ml MC DAILY fluticasone propionate 120 SPR/BOT bottle 1 - 2 spr NS DAILY Rx Instructions: each nostril daily ubrogepant 100 MG tablet 100 mg PO NEEDED PRN (Reason: migraines) Referrals Follow up/Referrals: Ger Brandt MD [Primary Care Provider] - See instructions Elisabeth Ennis DPM [Staff Physician] - See instructions Activity Restrictions/Add. Instructions Additional Instructions/Restrictions: Rest the extremity, apply ice for 15 minutes as tolerated three or four times per day, Wear the juvencio wrap for compression, Elevate the extremity as tolerated while you are resting. Take tylenol or ibuprofen for pain. Follow up with Dr. Ennis (podiatry). I put in a referral but you need to call her office and schedule an appointment. Follow up with your regular doctor. GO TO THE ER FOR ANY WORSENING SYMPTOMS Clinical Impressions Clinical Impression: Right ankle sprain, Pain in right ankle Stand Alone Forms Stand Alone Forms: Work/School Release Instructions Patient Instructions: Ankle Sprain, DI for Ankle Sprain Discharge ED Provider: Bimal Dan [facility] General Stated complaint: AO 10/09/23 0800 Injury Right ankle Mode of Arrival: Ambulatory Source of Information: Patient Limitations: No Limitations Time Seen by Provider: 10/09/23 18:07 HEENT Symptoms (Recalled from RN notes): No Resp Symptoms (Recalled from RN notes): No Skin Symptoms (Recalled from RN notes): No MS Symptoms (Recalled from RN notes): Yes (c/o R foot and ankle pain r/t fall.) Functional Status (Recalled from RN notes): n/a History of Present Illness Provider Complaint: pt c/o R foot and ankle pain. Pt reports she fell off her back porch, approx 3 feet this morning. She has a history of fracturing that ankle in the past and having orif of it. She is afraid she has hurt the hardware that is in the ankle. She denies any other injury or complaints. Related Data Home Medications Medication Instructions Recorded Confirmed alogliptin 25 mg tablet 25 mg PO DAILY Diabetes 06/14/19 05/26/23 cyclobenzaprine 5 mg tablet 5 mg PO QHS muscle relaxer 06/14/19 05/26/23 diclofenac sodium 75 mg 75 mg PO BID Pain 06/14/19 05/26/23 tablet,delayed release lisinopril 10 2 tab PO DAILY blood pressure 06/14/19 05/26/23 mg-hydrochlorothiazide 12.5 mg tablet omega-3 fatty acids 1,000 mg 1,000 mg PO BID Supplement 06/14/19 05/26/23 capsule (Fish Oil Concentrate) citrate dextrose solution 500 ml miscellaneous DAILY 03/24/20 05/26/23 Supplement cyanocobalamin (vitamin B-12) 1,000 mcg IM WEEKLY Supplement 03/24/20 05/26/23 1,000 mcg/mL injection solution fluticasone propionate 50 1 - 2 spr intranasal DAILY 03/24/20 05/26/23 mcg/actuation nasal allergies spray,suspension hydrochlorothiazide 25 mg tablet 25 mg PO DAILY Fluid 03/24/20 05/26/23 ubrogepant 100 mg tablet 100 mg PO NEEDED PRN migraines 03/24/20 05/26/23 Previous Rx's Medication Instructions Recorded diclofenac sodium 1 % topical gel 2 g topical QID pain #100 grams 06/25/19 (Voltaren) buspirone 10 mg tablet 10 mg PO TID #90 tabs 09/13/23 olanzapine 15 mg-samidorphan 10 mg 1 tab PO QHS #30 tabs 09/13/23 tablet (Lybalvi) Allergies Allergy/AdvReac Type Severity Reaction Status Date / Time acetaminophen [From Percocet] Allergy Mild n/v Verified 05/26/23 13:02 amoxicillin [From Augmentin] Allergy Mild diarrhea Verified 05/26/23 13:02 n/v clavulanic acid Allergy Mild diarrhea Verified 05/26/23 13:02 [From Augmentin] n/v oxycodone [From Percocet] Allergy Mild n/v Verified 05/26/23 13:02 Worker's Comp Is this a Worker's Comp case?: No [facility] Disclaimer: The information contained in this section may have been updated after the patient was seen, as this information can be updated by other users. Medical History (Updated 10/09/23 @ 19:16 by Bimal Dan APRN) Migraines COPD (chronic obstructive pulmonary disease) Asthma Generalized anxiety disorder Recurrent major depression resistant to treatment Social History Smoking Status: Current every day smoker tobacco type: cigarettes packs per day: 1 second hand exposure: Yes alcohol intake: never substance use type: marijuana current occupational status: unemployed Travel in the last 8 weeks: None household members: spouse housing: house number of children: 4 current occupational exposures/hazards: No caffeine: Yes ROS Obtained: Yes All systems reviewed & no additional complaints except as documented Constitutional Constitutional: Denies chills and Denies fever(s) Eyes Eyes: Denies eye discharge ENT Ears, Nose, Mouth, and Throat: Denies dizziness, Denies otalgia and Denies sore throat Cardiovascular Cardiovascular: Denies chest pain Respiratory Respiratory: Denies shortness of breath, Denies chest congestion, Denies cough, Denies stridor and Denies wheezing Gastrointestinal Gastrointestingal: Denies nausea or vomiting Musculoskeletal Musculoskeletal: Reports as per HPI Integumentary/Breasts Skin/Breast: Denies rash Neurologic Neurologic: Denies dizziness and Denies paresthesias Allergic/Immunologic Allergic/Immunologic: Denies wheezing Physical Exam General General appearance: alert and in no apparent distress Head Head exam: atraumatic, normocephalic and normal inspection Eye Eye exam: Present normal appearance, PERRL and EOMI ENT ENT exam: Present normal exam, normal oropharynx, mucous membranes moist, TM's normal bilaterally and normal external ear exam Neck Neck exam: Present normal inspection, full ROM and trachea midline; Absent meningismus or lymphadenopathy Chest Chest inspection: Present normal inspection and symmetric chest wall rise; Absent tenderness Respiratory Respiratory exam: Present normal lung sounds bilaterally; Absent respiratory distress Cardiovascular Cardiovascular exam: Present regular rate and normal rhythm; Absent JVD Abdominal Exam Abdominal exam: Present soft and normal bowel sounds; Absent distention, tenderness or guarding Extremities Exam Extremities exam: Present normal capillary refill; Absent calf tenderness Expanded Lower Extremity Exam Right: Knee exam: Present normal inspection, full ROM and knee extension intact; Absent tenderness Lower leg exam: Present normal inspection, full ROM and Achilles tendon intact; Absent tenderness or Homans' sign Ankle exam: Present full ROM and tenderness; Absent swelling, abrasion, laceration, ecchymosis, deformity, crepitus, dislocation, erythema, tenderness over talofibular lig or anterior draw sign Foot/toe exam: Present full ROM and tenderness; Absent swelling, abrasion, laceration, ecchymosis, deformity, crepitus, dislocation, erythema, amputation, puncture wound, foreign body, calcaneal tenderness, tenderness at base of 5th metatarsal, nail avulsion or subungual hematoma Neurovascular/Tendon exam: Present normal capillary refill, normal 2-point discrimination and normal fine/light touch; Absent pulse deficit, motor deficit, sensory deficit, tendon deficit, extremity cold to touch or pallor Gait: observed and limited by pain Back Exam Back exam: Present normal inspection; Absent tenderness Neurological Exam Neurological exam: Present alert and oriented X3 Psychiatric Psychiatric exam: Present normal affect and normal mood Skin Skin exam: Present warm, dry, intact and normal color Lymphatic Lymphatic Findings: no adenopathy Medical Decision Making Medical Records Medical records reviewed: No I reviewed the patient's medical records. John Inquiry Pt receiving controlled substance: No Vital Signs: 10/09/23 17:53 Temperature 98.4 F Temperature Source Oral Pulse Rate [Right Radial] 98 H Respiratory Rate 18 Blood Pressure [Right Arm] 118/73 Blood Pressure Mean [Right Arm] 88 Blood Pressure Source [Right Arm] Automatic Cuff Blood Pressure Position [Right Arm] Sitting 02 Sat by Pulse Oximetry 98 Oxygen Delivery Method Room Air Orders (Tests/Meds): ORDERS Category Date Time Status Ankle XR -Right minimum 3 Views [XR ankle RT min 3V] Exams 10/09/23 17:53 Taken Stat XR foot RT min 3V Stat Exams 10/09/23 17:53 Taken Radiology Data #1: Image(s): Ankle Accession No. 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 Views: 3 or more views. COMPARISON: 06/14/2019 FINDINGS: Bones/joints: Status post ORIF distal tibia and fibula. Hardware appears intact. Soft tissues: Normal. IMPRESSION: Intact ORIF. No evidence of acute injury or hardware failure. Procedures Risk/Benefits of Procedure(s) Were Explained: Yes Orthopedic Splinting/Casting Injury #1: Side: right Lower Extremity Injury Location: ankle and foot Lower Extremity Immobilizer: boot orthosis and applied by nurse/dr casey Post Cast/Splinting Neuro Status: intact and no change Post Cast/Splinting Vasc Status: intact and no change
[2023-10-09 19:29] VITALS: BP 118/73; PULSE 98; RESP 18; TEMP 36.9; O2SAT 98
== END 2023-10-09 19:29 | disposition home or self-care (01) ==
PROVIDERS: Emergency Provider Nurse Practitioner Family; PCP Internal Medicine Adolescent Medicine
DX: S93.401A Sprain of unspecified ligament of right ankle, initial encounter (principal); M25.571 Pain in right ankle and joints of right foot; W17.89XA Other fall from one level to another, initial encounter
CPT/HCPCS: 73610; 73630; 99204; 99212; G0463